=== PATIENT | female | born 2000 | race Caucasian/White ===

== ENCOUNTER 2023-04-11 21:31 | Emergency (ER) | payer OTHER, SELFPAY ==
[2023-04-11 21:32] VITALS: BP 149/88; PULSE 100; RESP 18; TEMP 36.8; O2SAT 98; BMI 28.5
--- NOTE | 2023-04-11 22:02 | EX.ED.VIS.UR ---
HPI HPI - URI History of Present Illness Chief Complaint: Ear Problem Informant: patient Onset/Context/Timing Onset: Days (2) Context: Gradual Onset Timing: Continuous Quality: ache/throb Location: L ear Current Severity: Moderate Maximum Severity: Moderate Worsened by: - (nothing) Relieved by: Not Relieved By NSAIDs Associated Symptoms Associated Symptoms: Positive for Nasal Congestion (and sore throat); Negative for Shortness of Breath or Nonproductive cough Narrative Narrative: Patient has had sore throat with nasal congestion for the past 5-7 days, she has had the left earache for the past couple days that is getting significant despite trying to ibuprofen, when she lies on her left side for a while she gets up and feels vertiginous for a brief period of time the thing goes away when she remains still. she denies any ear discharge.. ROS ROS ED Constitutional Constitutional ED: Denies chills or fever(s) ENT ENT ED: Reports ear pain left, nasal congestion, rhinorrhea and sore throat Cardiovascular Cardiovascular: Denies chest pain or palpitations Respiratory/Chest Respiratory/Chest: Denies cough or dyspnea Gastrointestinal Gastrointestinal: Denies abdominal pain, diarrhea, nausea or vomiting Genitourinary Genitourinary ED: Denies dysuria or hematuria Musculoskeletal Musculoskeletal: Denies myalgias or neck pain Integumentary Denies abscess or rash Neurologic Neurologic: Denies headache(s), paresthesias or weakness Psychiatric Psychiatric: Denies depression or suicidal thoughts Endocrine Endocrinology: Denies polydipsia or polyuria PFSH PFSH Medical History Nexplanon in place Medical History no medical history Home Medications cefdinir 300 mg capsule 300 mg PO Q12H #14 caps 04/11/23 [Rx Last Taken Unknown] Allergy/AdvReac Type Severity Reaction Status Date / Time amoxicillin Allergy Mild Vomiting Verified 04/11/23 21:35 red (food color) AdvReac Mild Vomiting Verified 04/11/23 21:35 Family History (Updated 04/11/23 @ 21:39 by Mayi Huang) Mother Asthma Grandmother Colon cancer Surgical History no surgical history Social History household members: significant other housing: house current occupational status: student Smoking Status: Never smoker EXAM Physical Exam Const Vital Signs: 04/11/23 21:32 Temperature 98.3 F Temperature Source Temporal Pulse Rate 100 Respiratory Rate 18 Blood Pressure 149/88 H Blood Pressure Mean 108 Pulse Ox 98 Oxygen Delivery Method Room Air Positive well nourished and well developed General Appearance ED: well developed and NAD HEENT Reports moist mucous membranes HEENT Narrative: Right EAC and TM normal. Left EAC unremarkable, the tympanic membrane is bulging with a purulent effusion it appears erythematous with altered light reflex. No perforation/discharge. normocephalic and atraumatic Throat: Negative for posterior oropharynx abnormal Eyes PERRL and EOMs intact bilaterally Neck supple and no meningeal signs Neck Narrative: No prominent palpable nodes but bilateral submandibular tenderness. No posterior nodes. Resp normal respiratory effort and clear to auscultation bilaterally Cardio no murmurs Rate: regular rate Rhythm: regular rhythm Neuro oriented x3, CN's II-XII intact bilaterally and no sensory deficits noted Sensorium / Orientation: alert Motor Exam: strength 5/5 throughout Skin Lesions: no lesions Rashes: no rashes MDM MDM MDM Narrative Medical decision making narrative: High prevalence of multiple viral etiologies in the area recently which is likely causing her URI, with a bacterial otitis which we will treat with cefdinir since she has amoxicillin allergy. She is asking for something for pain, will give her a dose of tramadol here tonight and advised [id number] going forward she is comfortable with that. Discharge Plan Triage Chief Complaint: Ear Problem ED Provider: Wallace Ayala Dx/Rx/DC Orders Clinical Impression: Acute left otitis media, Viral URI Instructions: ED Otitis Media Adult Prescriptions: New cefdinir 300 mg capsule 300 mg PO Q12H Qty: 14 0RF Primary Care Provider: NOT,DEFINED Referrals: NOT,DEFINED [Primary Care Provider] - Doctor,Your [Non-Staff] - 1 Week if not improving Disposition Disposition: Home, Self Care
[2023-04-11] MEDS: traMADol 50 MG Tablet PO (22:26)
[2023-04-11] MEDS: Cefdinir 300 MG Capsule PO (22:27)
[2023-04-11 22:29] VITALS: RESP 14
== END 2023-04-11 22:30 | disposition home or self-care (01) ==
PROVIDERS: Emergency Provider Emergency Medicine; PCP Family Medicine; Visit Provider Emergency Medicine
DX: J06.9 Acute upper respiratory infection, unspecified (principal); H66.92 Otitis media, unspecified, left ear
CPT/HCPCS: 99283